=== PATIENT | female | born 1985 | race Caucasian/White ===

== ENCOUNTER → 2020-11-02 12:28 | Outpatient (CLI) | payer OTHER, MEDICAID, SELFPAY ==
[2020-11-02 14:34] LABS: Urine N gonorrhoeae NOT DETECTED
[2020-11-02 14:42] LABS: Urine Chlamydia NOT DETECTED
== END ==
PROVIDERS: Referring Provider Family Medicine; Visit Provider Family Medicine
DX: Z11.3 Encounter for screening for infections with a predominantly sexual mode of transmission (principal); Z11.8 Encounter for screening for other infectious and parasitic diseases; Z3A.22 22 weeks gestation of pregnancy
CPT/HCPCS: 87491; 87591

== ENCOUNTER → 2020-11-02 12:38 | Outpatient (CLI) | payer OTHER, MEDICAID, SELFPAY ==
--- NOTE | 2020-11-02 12:42 | DI.US.S_ITS ---
PROCEDURE: US OB >= 14 WEEKS FETUS INDICATIONS: 20 WEEK ANATOMY OUTSIDE/PRIOR DATING DATA: Last menstrual period (LMP): 06/03/2021. LMP-based estimated date of delivery ([facility]): 03/10/2021 First dating scan (date and location): 11/02/2020 . Estimated date of delivery ([facility]) from first dating scan: 04/11/2021 . TECHNIQUE: Real-time scanning was performed of the fetus, with image documentation and biometric measurements. Endovaginal scanning: No COMPARISON: None. FINDINGS: General: A single living intrauterine gestation is present. Presentation: Variable. Placenta: Placental position is anterior , and complete placenta previa at this time. Amniotic fluid index: 14.7 cm, normal range is 5-24 cm. heart rate: 147 beats per minute. Maternal cervical canal: 4.6 cm long. Normal lower limit is 2.5 cm. biometrics: Biparietal diameter: 17 weeks Head circumference: 17 weeks Abdominal circumference: 17 weeks 4 days Femur length: 17 weeks 1 day Estimated gestational age from initial scan: 17 weeks 1 day Composite gestational age from present scan: 17 weeks 1 day Estimated weight and percentile: 190 g Measurement variability for biometric dating: +/- 7 days from 14 weeks to 15 weeks 6 days gestation, +/- 10 days from 16 weeks to 21 weeks 6 days gestation, +/- 2 weeks from 22 weeks to 27 weeks 6 days gestation, +/- 3 weeks for 28 weeks gestation or later. weight reference: 4500 g or EFW >90/95% is considered macrosomia or large for gestational age. EFW <10% is small for gestational age. EFW 5% or less is considered intra-uterine growth restriction. Anatomic survey: Neuro: Ventricles are non-dilated at less than 10 mm. Cisterna magna is normal at 3-11 mm. Cerebellum is normal in size and morphology. Nuchal skin fold: Normal at less than 6 mm between 14-21 weeks gestational age. Face: Not well seen. Spine: Not well seen. Heart: Not well seen. Diaphragm: Diaphragm is intact. Stomach: Left-sided stomach is present. Kidneys: No hydronephrosis. Normal is less than 5 mm in 2nd trimester, less than 7 mm in 3rd trimester. Cord: 3-vessel cord has orthotopic insertion. Bladder: Normal in size. Extremities: All 4 extremities identified. IMPRESSION: 1. 17 week 1 day single living IUP corresponding to ultrasound [facility] of 04/11/2021. 2. Limited anatomic survey. Follow-up recommended. 3. Complete placenta previa which can be reassessed on follow-up exam. Dictated by: Gui Quiroga [facility] Interpreted: Edgar Vazquez MD on 11/03/2020 at 12:46 Transcribed by: NARAYAN on 11/03/2020 at 12:49 Approved by: Edgar Vazquez M.D. on 11/03/2020 at 15:36
[2020-11-02 13:11] LABS: Add Manual Diff / Slide Review NO; Basophils Absolute Auto 0 /uL (0-100); Basophils Percent Auto 0.6 % (0-2); Eosinophils Absolute Auto 200 /uL (0-450); Eosinophils Percent Auto 2.7 % (2-4); Hematocrit 37.2 % (36-46); Hemoglobin 12.4 g/dL (12.0-16.0); Lymphocytes Absolute Auto 1600 /uL (1100-4500); Lymphocytes Percent Auto 20.3 % (25-40); Mean Corpuscular HGB Conc 33.3 % (30-36); Mean Corpuscular Hemoglobin 30.4 PG (26-34); Mean Corpuscular Volume 91.1 fL (80-100); Monocytes Absolute Auto 500 /uL (0-900); Monocytes Percent Auto 6.3 % (3-14); Neutrophils Absolute Auto 5500 /uL (1500-7000); Neutrophils Percent Auto 70.1 % (50-75); Platelet Count 302 X10^3/uL (150-400); Red Blood Cell Count 4.09 X10^6/uL (4.0-5.2); Red Cell Distribution Width 13.9 % (11.6-14.8); White Blood Cell Count 7.8 X10^3/uL (4.5-11.0)
[2020-11-02 15:22] LABS: Appearance Urine UA CLEAR; Bilirubin Urine UA NEGATIVE (NEGATIVE); Color Urine UA YELLOW; Glucose Urine UA NEGATIVE (Negative); Ketones Urine UA NEGATIVE (NEGATIVE); Leukocyte Esterase Urine UA NEGATIVE (NEGATIVE); Nitrite Urine UA NEGATIVE (Negative); Occult Blood Urine UA NEGATIVE (Negative); Protein Urine UA NEGATIVE (Negative); Specific Gravity Urine UA 1.015 (1.000-1.035); Urobilinogen Urine UA 0.2 E.U./dL (0.2)
[2020-11-02 15:56] LABS: Hepatitis B Surface Antigen NEGATIVE s/c (NEGATIVE); Rubella Antibody IgG 29.2 IU/mL (>15)
[2020-11-02 16:13] LABS: HIV 1 & 2 Ab/Ag 4th Gen Combo NEGATIVE (NEGATIVE); Hep C Virus Ab w/Reflex Quant NEGATIVE s/c (NEGATIVE)
[2020-11-03 07:14] LABS: HSV 2 IGG AB > 23.60 index (0.00-0.90); HSV1IGG < 0.91 index (0.00-0.90)
[2020-11-03 08:13] LABS: RPR Screen Non Reactive (Non Reactive)
[2020-11-03 11:10] LABS: Varicella IgG Antibody 1276 index (Immune >165)
== END ==
PROVIDERS: Referring Provider Family Medicine; Visit Provider Family Medicine
DX: Z36.89 Encounter for other specified antenatal screening (principal); Z11.3 Encounter for screening for infections with a predominantly sexual mode of transmission; Z11.8 Encounter for screening for other infectious and parasitic diseases; Z3A.17 17 weeks gestation of pregnancy
CPT/HCPCS: 36415; 76811; 80055; 81003; 86695; 86696; 86787; 86803; 86850; 86900; 86901; 87077; 87086; 87186; 87389; 87491; 87591